=== PATIENT | male | born 1930 | race Caucasian/White ===

== ENCOUNTER 2019-12-16 09:59 | Emergency (ER) | payer MEDICARE ==
[~2019-12-16] VITALS: Ht 182.9 cm; Wt 100.0 kg
--- NOTE | 2019-12-16 10:18 | NUR ---
DR MANN BS FOR EXAM. PT REPORTS STATES "IT'S ALL SCROTAL AREA TO ME". NOTICES BLEEDING AFTER URINATING. PT PREVIOUSLY STATED HE DOESN'T URINATE DAILY. PT NOW STATES "I PEE EVERY DAY, BUT NOT LIKE WHEN I WAS YOUNGER". PT DENIES RENAL FAILURE.
--- NOTE | 2019-12-16 10:23 | NUR ---
PT WOULD LIKE HIS SON TO BE NOTIFIED OF PT BEING IN ED TODAY. SON: ONEYDA LAWTON. CELL [phone]. ( JANUARY 04)
--- NOTE | 2019-12-16 10:33 | NUR ---
ISIS BLOOD NOTED ON PT'S DEPENDS.
--- NOTE | 2019-12-16 11:13 | NUR ---
CALLED PT'S SON - ID VERIFIED. GENERAL PT STATUS PROVIDED. ONEYDA WILL COME TO ED SOON. PT WILL BE NOTIFIED.
[2019-12-16 11:15] LABS: ALANINE AMINOTRANSFERASE 15 U/L (12-78); ALBUMIN 2.8 g/dL (3.4-5.0); ANION GAP 6 mmol/L (5-15); CALCIUM 8.6 mg/dL (8.5-10.1); CHLORIDE 107 mmol/L (98-107); INTERNATIONAL NORMALIZED RATIO 1.47 (0.93-1.1)
[2019-12-16 11:19] LABS: ALKALINE PHOSPHATASE 85 U/L (45-117); CREATININE 1.52 mg/dL (0.7-1.3); TOTAL PROTEIN 5.9 g/dL (6.4-8.2)
[2019-12-16 11:25] LABS: PROTHROMBIN TIME 15.6 Seconds (9.6-11.5)
--- NOTE | 2019-12-16 11:26 | NUR ---
PT REPORT TO [facility]. PT CARE TRANSFERRED. NYSTATIN RECEIVED FROM PHARMACY; RX GIVEN TO ETELVINA.
[2019-12-16] MEDS ORDERED: NYSTATIN TOPICAL POWDER 15GM TP ONE (11:30)
--- NOTE | 2019-12-16 11:52 | NUR ---
PT UNABLE TO PROVIDE URINE SAMPLE. UA COLLECTED VIA STRAIGHT CATH AND TAKEN TO LAB.
[2019-12-16 11:58] LABS: MEAN CORPUSCULAR HEMOGLOBIN 33.9 pg (27.5-34.5); MEAN CORPUSCULAR HGB CONC 32.4 g/dL (33.2-36.2); MEAN CORPUSCULAR VOLUME 104.8 fL (81-97); PLATELET COUNT 90 x10^3/uL (130-400); RED BLOOD COUNT 3.37 x10^6/uL (4.38-5.82); RED CELL DISTRIBUTION WIDTH 17.2 % (9.4-14.8)
[2019-12-16 12:08] LABS: MD SCAN
[2019-12-16 12:09] LABS: BASOPHILS # (AUTO) 0.01 x10^3/uL (0-0.1); BASOPHILS % (AUTO) 0 % (0-1); EOSINOPHILS # (AUTO) 0.01 x10^3/uL (0-0.4); EOSINOPHILS % (AUTO) 0 % (1-7); LYMPHOCYTES # (AUTO) 1.52 x10^3/uL (1-3.4); LYMPHOCYTES % (AUTO) 47 % (22-44); MONOCYTES # (AUTO) 0.05 x10^3/uL (0.2-0.8); MONOCYTES % (AUTO) 2 % (2-9); NEUTROPHILS # (AUTO) 1.68 x10^3/uL (1.8-6.8); NEUTROPHILS % (AUTO) 51 % (42-75)
[2019-12-16 12:25] VITALS: BP 103/61
[2019-12-16 12:27] LABS: MICROSCOPIC AUTO
--- NOTE | 2019-12-16 12:43 | NUR ---
ALL RESULTS ARE BACK AT THIS TIME. CHART UP FOR RECHECK. SON AT BEDSIDE. SON WILL DRIVE PT HOME IF/WHEN DC.
--- NOTE | 2019-12-16 13:26 | NUR ---
MD AT BEDSIDE TO UPDATE PT ON POC.
== END 2019-12-16 13:57 | disposition home or self-care (01) ==
LOC: ED 10:48
DX: R31.0 Gross hematuria (principal); B37.42 Candidal balanitis
CPT/HCPCS: 36415; 80053; 81001; 85025; 85610; 85730; 99283

== ENCOUNTER 2019-12-19 22:07 | Inpatient (IN) | payer MEDICARE, OTHER ==
[~2019-12-19] VITALS: Ht 188 cm; Wt 93.5 kg
--- NOTE | 2019-12-19 22:45 | NUR ---
PT TO ED WITH C/O OF LEFT SIDED SCROTAL BLEEDING. NO BLEEDING NOTED, SCAB SITES NOTED. ERP IN ROOM TO EVAL PT. MONITORING IN PLACE, CALL LIGHT WITHINREACH, FAMILY AT BS FOR SUPPORT.
[2019-12-19 23:23] LABS: MEAN CORPUSCULAR HEMOGLOBIN 33.7 pg (27.5-34.5); MEAN CORPUSCULAR HGB CONC 32.2 g/dL (33.2-36.2); MEAN PLATELET VOLUME 9.5 fL (7.4-10.4); PLATELET COUNT 96 x10^3/uL (130-400); RED BLOOD COUNT 3.23 x10^6/uL (4.38-5.82); RED CELL DISTRIBUTION WIDTH 17.1 % (9.4-14.8)
[2019-12-19 23:25] LABS: ALANINE AMINOTRANSFERASE 13 U/L (12-78); ALBUMIN 2.5 g/dL (3.4-5.0); ANION GAP 4 mmol/L (5-15); CHLORIDE 107 mmol/L (98-107); CREATININE 1.55 mg/dL (0.7-1.3)
[2019-12-19 23:29] LABS: ALKALINE PHOSPHATASE 79 U/L (45-117); BILIRUBIN,TOTAL 0.7 mg/dL (0.2-1.0); TOTAL PROTEIN 5.5 g/dL (6.4-8.2)
--- NOTE | 2019-12-19 23:33 | NUR ---
THIS TECH DID EKG
[2019-12-19 23:46] LABS: BASOPHILS # (AUTO) 0.01 x10^3/uL (0-0.1); BASOPHILS % (AUTO) 0 % (0-1); EOSINOPHILS % (AUTO) 0 % (1-7); LYMPHOCYTES # (AUTO) 1.34 x10^3/uL (1-3.4); LYMPHOCYTES % (AUTO) 33 % (22-44); MD MORPH REVIEW ONLY; MONOCYTES # (AUTO) 0.02 x10^3/uL (0.2-0.8); MONOCYTES % (AUTO) 1 % (2-9); NEUTROPHILS # (AUTO) 2.68 x10^3/uL (1.8-6.8); NEUTROPHILS % (AUTO) 66 % (42-75)
[2019-12-19 23:48] LABS: ANISOCYTOSIS 1+; ECHINOCYTES 1+; OVALOCYTES 1+
[2019-12-19 23:49] LABS: <PLATELET ESTIMATE> DECREASED; <PLT MORPHOLOGY> NORMAL PLT MORPH
[2019-12-20] MEDS ORDERED: FUROSEMIDE 20 MG/2 ML ONE (00:17)
[2019-12-20] MEDS ORDERED: POTASSIUM CHLORIDE 20 MEQ TAB.ER.PRT ONE (00:17)
[2019-12-20] MEDS ORDERED: FUROSEMIDE 40 MG/4 ML IV ONE ×2 (00:30→11:00)
[2019-12-20] MEDS ORDERED: BISACODYL 10 MG SUPP PR PRN (00:30)
[2019-12-20] MEDS ORDERED: ACETAMINOPHEN 325 MG TABLET PO PRN (00:30)
[2019-12-20] MEDS ORDERED: POLYETHYLENE GLYCOL 17 GM PACKET PO PRN (00:30)
[2019-12-20] MEDS ORDERED: POTASSIUM CHLORIDE 20 MEQ TAB.ER.PRT PO ONE (00:30)
[2019-12-20] MEDS ORDERED: ONDANSETRON ODT 4 MG PO PRN (00:30)
[2019-12-20 02:32] VITALS: BP 118/78
[2019-12-20 06:14] LABS: CHLORIDE 107 mmol/L (98-107)
[2019-12-20 06:17] LABS: MEAN CORPUSCULAR HEMOGLOBIN 34.2 pg (27.5-34.5); MEAN CORPUSCULAR HGB CONC 33.2 g/dL (33.2-36.2); MEAN PLATELET VOLUME 9.6 fL (7.4-10.4); PLATELET COUNT 88 x10^3/uL (130-400); RED CELL DISTRIBUTION WIDTH 17.3 % (9.4-14.8)
[2019-12-20 06:27] LABS: ANION GAP 6 mmol/L (5-15); CALCIUM 8.4 mg/dL (8.5-10.1); CREATININE 1.33 mg/dL (0.7-1.3)
[2019-12-20 06:54] LABS: BASOPHILS % (AUTO) 0 % (0-1); EOSINOPHILS % (AUTO) 0 % (1-7); LYMPHOCYTES # (AUTO) 1.32 x10^3/uL (1-3.4); LYMPHOCYTES % (AUTO) 40 % (22-44); MD SCAN; MONOCYTES # (AUTO) 0.01 x10^3/uL (0.2-0.8); MONOCYTES % (AUTO) 0 % (2-9); NEUTROPHILS # (AUTO) 1.99 x10^3/uL (1.8-6.8); NEUTROPHILS % (AUTO) 60 % (42-75)
[2019-12-20 07:18] VITALS: BP 100/86
[2019-12-20] MEDS: POTASSIUM CHLORIDE 20 MEQ TAB.ER.PRT PO SCH ×3 (08:00→17:16)
[2019-12-20] MEDS: FUROSEMIDE 40 MG/4 ML IV SCH ×2 (08:21→17:16)
[2019-12-20] MEDS: SENNA/DOCUSATE TABLET PO SCH (08:22)
[2019-12-20] MEDS: SODIUM CHLORIDE FLUSH 10ML SYR IVF SCH ×2 (08:22→21:44)
[2019-12-20] MEDS ORDERED: POTASSIUM CHLORIDE 40 MEQ in SODIUM CHLORIDE 0.9% 500 ML IV ONE (11:00)
[2019-12-20 13:29] VITALS: BP 102/58
[2019-12-20 22:01] VITALS: BP 93/59
[2019-12-20 22:03] VITALS: BP 94/55
[2019-12-21 01:34] VITALS: BP 90/56
[2019-12-21 01:58] LABS: MICROSCOPIC INDICATED
[2019-12-21] MEDS: CEFTRIAXONE PMX 1GM/50ML 50 ML IV SCH (04:33)
[2019-12-21 06:58] VITALS: BP 90/61
[2019-12-21 07:18] LABS: ALANINE AMINOTRANSFERASE 16 U/L (12-78); ALBUMIN 2.2 g/dL (3.4-5.0); ANION GAP 7 mmol/L (5-15); CALCIUM 8.2 mg/dL (8.5-10.1); CHLORIDE 107 mmol/L (98-107); MEAN CORPUSCULAR HGB CONC 32.5 g/dL (33.2-36.2); RED BLOOD COUNT 3.32 x10^6/uL (4.38-5.82); RED CELL DISTRIBUTION WIDTH 17.6 % (9.4-14.8)
[2019-12-21 07:20] LABS: ALKALINE PHOSPHATASE 96 U/L (45-117); BILIRUBIN,TOTAL 1.3 mg/dL (0.2-1.0); CREATININE 2.19 mg/dL (0.7-1.3); TOTAL PROTEIN 5.6 g/dL (6.4-8.2)
[2019-12-21 07:34] LABS: MEAN PLATELET VOLUME 9.8 fL (7.4-10.4); PLATELET COUNT 75 x10^3/uL (130-400)
[2019-12-21 07:35] LABS: BASOPHILS % (AUTO) 0 % (0-1); EOSINOPHILS % (AUTO) 0 % (1-7); LYMPHOCYTES # (AUTO) 1.11 x10^3/uL (1-3.4); LYMPHOCYTES % (AUTO) 14 % (22-44); MD SCAN; MONOCYTES # (AUTO) 0.01 x10^3/uL (0.2-0.8); MONOCYTES % (AUTO) 0 % (2-9); NEUTROPHILS # (AUTO) 6.62 x10^3/uL (1.8-6.8); NEUTROPHILS % (AUTO) 86 % (42-75)
[2019-12-21 08:37] VITALS: BP 103/62
[2019-12-21] MEDS: POTASSIUM CHLORIDE 20 MEQ TAB.ER.PRT PO SCH ×2 (08:43→18:43)
[2019-12-21] MEDS: SENNA/DOCUSATE TABLET PO SCH (08:43)
[2019-12-21] MEDS: FUROSEMIDE 40 MG/4 ML IV SCH ×2 (08:43→18:43)
[2019-12-21] MEDS: SODIUM CHLORIDE FLUSH 10ML SYR IVF SCH ×2 (08:43→21:00)
[2019-12-21 12:24] VITALS: BP 94/68
[2019-12-21] MEDS: HEPARIN 5,000 UNITS/ML, 1ML SQ SCH (18:43)
[2019-12-21 19:02] VITALS: BP 100/66
[2019-12-22 01:19] VITALS: BP 98/63
[2019-12-22] MEDS: HEPARIN 5,000 UNITS/ML, 1ML SQ SCH ×3 (04:29→20:36)
[2019-12-22] MEDS: CEFTRIAXONE PMX 1GM/50ML 50 ML IV SCH (04:29)
[2019-12-22] MEDS: SENNA/DOCUSATE TABLET PO SCH (08:13)
[2019-12-22] MEDS: POTASSIUM CHLORIDE 20 MEQ TAB.ER.PRT PO SCH ×2 (08:13→17:11)
[2019-12-22] MEDS: FUROSEMIDE 40 MG/4 ML IV SCH ×2 (08:13→17:11)
[2019-12-22] MEDS: SODIUM CHLORIDE FLUSH 10ML SYR IVF SCH ×2 (08:13→20:36)
[2019-12-22 08:34] VITALS: BP 106/72
[2019-12-22 13:19] VITALS: BP 99/61
[2019-12-22 19:29] VITALS: BP 98/68
[2019-12-23 01:35] VITALS: BP 102/70
[2019-12-23] MEDS: HEPARIN 5,000 UNITS/ML, 1ML SQ SCH ×3 (04:33→20:06)
[2019-12-23] MEDS: CEFTRIAXONE PMX 1GM/50ML 50 ML IV SCH (04:33)
[2019-12-23 06:34] VITALS: BP 118/75
[2019-12-23] MEDS: FUROSEMIDE 40 MG/4 ML IV SCH (07:42)
[2019-12-23] MEDS: POTASSIUM CHLORIDE 20 MEQ TAB.ER.PRT PO SCH ×2 (07:42→17:00)
[2019-12-23] MEDS: SENNA/DOCUSATE TABLET PO SCH (07:42)
[2019-12-23] MEDS: SODIUM CHLORIDE FLUSH 10ML SYR IVF SCH ×2 (07:42→20:06)
[2019-12-23 13:40] VITALS: BP 105/74
[2019-12-23] MEDS ORDERED: AMIODARONE 150 MG in DEXTROSE 5% 100 ML IV ONE ×2 (17:00→18:30)
[2019-12-23] MEDS ORDERED: FILTER 0.22 MICRON IV PRN (17:00)
[2019-12-23] MEDS: AMIODARONE 450 MG in DEXTROSE 5% 241 ML IV PRN (17:57)
[2019-12-23 17:59] LABS: ALANINE AMINOTRANSFERASE 17 U/L (12-78); ALBUMIN 1.9 g/dL (3.4-5.0); ANION GAP 8 mmol/L (5-15); CALCIUM 8.5 mg/dL (8.5-10.1); CHLORIDE 108 mmol/L (98-107); CREATININE 3.24 mg/dL (0.7-1.3)
[2019-12-23 18:03] LABS: MEAN CORPUSCULAR HEMOGLOBIN 33.7 pg (27.5-34.5); MEAN CORPUSCULAR HGB CONC 32.7 g/dL (33.2-36.2); RED BLOOD COUNT 4.32 x10^6/uL (4.38-5.82); RED CELL DISTRIBUTION WIDTH 18.3 % (9.4-14.8)
[2019-12-23 18:04] LABS: ALKALINE PHOSPHATASE 117 U/L (45-117); BILIRUBIN,TOTAL 0.8 mg/dL (0.2-1.0); TOTAL PROTEIN 5.8 g/dL (6.4-8.2); TROPONIN I < 0.015 ng/mL (0.000-0.045)
[2019-12-23] MEDS: NOREPINEPHRINE 8 MG in SODIUM CHLORIDE 0.9% 242 ML IV PRN (18:04)
[2019-12-23] MEDS ORDERED: ACETAMINOPHEN 650 MG SUPP ONE (18:13)
[2019-12-23 18:16] LABS: BASOPHILS # (AUTO) 0.02 x10^3/uL (0-0.1); BASOPHILS % (AUTO) 0 % (0-1); EOSINOPHILS % (AUTO) 0 % (1-7); LYMPHOCYTES # (AUTO) 2.78 x10^3/uL (1-3.4); LYMPHOCYTES % (AUTO) 38 % (22-44); MD SCAN; MEAN PLATELET VOLUME 10.7 fL (7.4-10.4); MONOCYTES % (AUTO) 0 % (2-9); NEUTROPHILS # (AUTO) 4.45 x10^3/uL (1.8-6.8); NEUTROPHILS % (AUTO) 61 % (42-75)
[2019-12-23 18:18] LABS: PLATELET COUNT 43 x10^3/uL (130-400)
[2019-12-23] MEDS ORDERED: ACETAMINOPHEN 650 MG SUPP PR PRN (18:30)
[2019-12-23 18:49] LABS: MICROSCOPIC AUTO
[2019-12-23] MEDS ORDERED: METOPROLOL 1 MG/ML, 5ML IVPush ONE (20:00)
[2019-12-24] MEDS: HEPARIN 5,000 UNITS/ML, 1ML SQ SCH (04:30)
[2019-12-24] MEDS: CEFTRIAXONE PMX 1GM/50ML 50 ML IV SCH (05:11)
[2019-12-24 08:19] LABS: ANION GAP 7 mmol/L (5-15); CHLORIDE 106 mmol/L (98-107); CREATININE 3.23 mg/dL (0.7-1.3)
[2019-12-24] MEDS ORDERED: AMIODARONE 150 MG in DEXTROSE 5% 100 ML IV ONE (09:30)
[2019-12-24] MEDS: AMIODARONE 450 MG in DEXTROSE 5% 241 ML IV PRN ×3 (09:42→23:05)
[2019-12-24] MEDS: NOREPINEPHRINE 8 MG in SODIUM CHLORIDE 0.9% 242 ML IV PRN ×2 (09:42→12:47)
[2019-12-24] MEDS: SODIUM CHLORIDE FLUSH 10ML SYR IVF SCH ×2 (09:43→21:00)
[2019-12-24] MEDS: TAMSULOSIN 0.4 MG CAP.ER.24H PO SCH (09:46)
[2019-12-24] MEDS: CYANOCOBALAMIN 1,000 MCG TABLET PO SCH (09:46)
[2019-12-24] MEDS: SENNA/DOCUSATE TABLET PO SCH (09:46)
[2019-12-24 13:49] LABS: CHLORIDE,URINE RANDOM 62 mmol/L; POTASSIUM,URINE RANDOM 19 mmol/L; SODIUM,URINE RANDOM 54 mmol/L
[2019-12-25] MEDS: CEFTRIAXONE PMX 1GM/50ML 50 ML IV SCH (04:12)
[2019-12-25 04:31] LABS: MEAN CORPUSCULAR HEMOGLOBIN 33.1 pg (27.5-34.5); MEAN PLATELET VOLUME 12.6 fL (7.4-10.4); RED BLOOD COUNT 4.27 x10^6/uL (4.38-5.82); RED CELL DISTRIBUTION WIDTH 18.1 % (9.4-14.8)
[2019-12-25 04:32] LABS: PLATELET COUNT 38 x10^3/uL (130-400)
[2019-12-25 04:38] LABS: ANION GAP 4 mmol/L (5-15); CALCIUM 8.2 mg/dL (8.5-10.1); CHLORIDE 108 mmol/L (98-107); CREATININE 2.62 mg/dL (0.7-1.3)
[2019-12-25 05:42] LABS: MD YES
[2019-12-25 05:45] LABS: EOS#(MANUAL) 0.07 x10^3/uL (0.0-0.4); EOS% (MANUAL) 1 % (1-7); LYMPH#(MANUAL) 2.47 x10^3/uL (1-3.4); LYMPHS% (MANUAL) 38 % (22-44); MONOS#(MANUAL) 0.07 x10^3/uL (0.3-2.7); MONOS% (MANUAL) 1 % (2-9); SEGS% (MANUAL) 60 % (42-75)
[2019-12-25 05:46] LABS: ECHINOCYTES 1+
[2019-12-25 05:47] LABS: <PLATELET ESTIMATE> DECREASED; ACANTHOCYTES 1+; ANISOCYTOSIS 1+
[2019-12-25 05:48] LABS: TOXIC GRAN 1+
[2019-12-25 05:49] LABS: LARGE PLATELETS 1+
[2019-12-25] MEDS: CYANOCOBALAMIN 1,000 MCG TABLET PO SCH (09:11)
[2019-12-25] MEDS: SENNA/DOCUSATE TABLET PO SCH (09:11)
[2019-12-25] MEDS: TAMSULOSIN 0.4 MG CAP.ER.24H PO SCH (09:11)
[2019-12-25] MEDS: SODIUM CHLORIDE FLUSH 10ML SYR IVF SCH ×2 (09:12→20:53)
[2019-12-25] MEDS: AMIODARONE 450 MG in DEXTROSE 5% 241 ML IV PRN (09:25)
[2019-12-25] MEDS: ALBUMIN HUMAN 25% 100 ML IV SCH ×2 (10:10→20:53)
[2019-12-25] MEDS: FUROSEMIDE 20 MG/2 ML IV SCH ×2 (10:57→16:46)
[2019-12-26] MEDS: AMIODARONE 450 MG in DEXTROSE 5% 241 ML IV PRN ×3 (01:40→19:57)
[2019-12-26] MEDS: CEFTRIAXONE PMX 1GM/50ML 50 ML IV SCH (04:44)
[2019-12-26 05:07] LABS: ANION GAP 3 mmol/L (5-15); CALCIUM 7.8 mg/dL (8.5-10.1); CHLORIDE 108 mmol/L (98-107)
[2019-12-26 05:08] LABS: CREATININE 2.06 mg/dL (0.7-1.3)
[2019-12-26 06:01] LABS: MEAN CORPUSCULAR HEMOGLOBIN 33.1 pg (27.5-34.5); MEAN CORPUSCULAR HGB CONC 32.6 g/dL (33.2-36.2); MEAN PLATELET VOLUME 11.3 fL (7.4-10.4); RED BLOOD COUNT 3.55 x10^6/uL (4.38-5.82); RED CELL DISTRIBUTION WIDTH 17.3 % (9.4-14.8)
[2019-12-26 06:02] LABS: MD YES
[2019-12-26 06:03] LABS: PLATELET COUNT 48 x10^3/uL (130-400)
[2019-12-26 06:04] LABS: BAND#(MANUAL) 0.18 x10^3/uL; BANDS%(MANUAL) 3 % (0-7); MONOS#(MANUAL) 0.06 x10^3/uL (0.3-2.7); MONOS% (MANUAL) 1 % (2-9)
[2019-12-26 06:05] LABS: ACANTHOCYTES 1+; ANISOCYTOSIS 1+; ECHINOCYTES 1+; LYMPH#(MANUAL) 2.95 x10^3/uL (1-3.4); LYMPHS% (MANUAL) 50 % (22-44); SEG#(MANUAL) 2.71 x10^3/uL (1.8-6.8); SEGS% (MANUAL) 46 % (42-75)
[2019-12-26 06:06] LABS: <PLATELET ESTIMATE> DECREASED; LARGE PLATELETS 1+; SMUDGE CELLS 1+
[2019-12-26 06:07] LABS: OVALOCYTES 1+
[2019-12-26] MEDS ORDERED: POTASSIUM CHLORIDE 20 MEQ TAB.ER.PRT PO ONE (07:30)
[2019-12-26] MEDS ORDERED: FUROSEMIDE 40 MG/4 ML IV ONE (08:30)
[2019-12-26] MEDS: SENNA/DOCUSATE TABLET PO SCH (08:45)
[2019-12-26] MEDS: CYANOCOBALAMIN 1,000 MCG TABLET PO SCH (08:45)
[2019-12-26] MEDS: SODIUM CHLORIDE FLUSH 10ML SYR IVF SCH ×2 (08:46→19:59)
[2019-12-26] MEDS: TAMSULOSIN 0.4 MG CAP.ER.24H PO SCH (08:46)
[2019-12-26] MEDS: ALBUMIN HUMAN 25% 100 ML IV SCH ×2 (08:49→22:18)
[2019-12-26] MEDS ORDERED: FUROSEMIDE 40 MG/4 ML IV SCH (17:00)
[2019-12-26] MEDS: NOREPINEPHRINE 8 MG in SODIUM CHLORIDE 0.9% 242 ML IV PRN (19:57)
[2019-12-27] MEDS: AMIODARONE 450 MG in DEXTROSE 5% 241 ML IV PRN ×2 (03:35→15:30)
[2019-12-27] MEDS: CEFTRIAXONE PMX 1GM/50ML 50 ML IV SCH (04:33)
[2019-12-27 05:26] LABS: MEAN CORPUSCULAR HEMOGLOBIN 33.5 pg (27.5-34.5); MEAN CORPUSCULAR HGB CONC 32.7 g/dL (33.2-36.2); MEAN PLATELET VOLUME 10.9 fL (7.4-10.4); PLATELET COUNT 67 x10^3/uL (130-400); RED CELL DISTRIBUTION WIDTH 16.9 % (9.4-14.8)
[2019-12-27 05:27] LABS: ANION GAP 3 mmol/L (5-15); CALCIUM 7.8 mg/dL (8.5-10.1); CHLORIDE 107 mmol/L (98-107); CREATININE 1.68 mg/dL (0.7-1.3)
[2019-12-27 05:54] LABS: MD YES
[2019-12-27 05:56] LABS: ANISOCYTOSIS 1+; EOS#(MANUAL) 0.12 x10^3/uL (0.0-0.4); EOS% (MANUAL) 2 % (1-7); LYMPH#(MANUAL) 2.88 x10^3/uL (1-3.4); LYMPHS% (MANUAL) 48 % (22-44); MONOS#(MANUAL) 0.06 x10^3/uL (0.3-2.7); MONOS% (MANUAL) 1 % (2-9); SEG#(MANUAL) 2.94 x10^3/uL (1.8-6.8); SEGS% (MANUAL) 49 % (42-75)
[2019-12-27 05:57] LABS: <PLATELET ESTIMATE> DECREASED; ACANTHOCYTES 1+; ECHINOCYTES 1+; LARGE PLATELETS 1+; SMUDGE CELLS 1+
[2019-12-27] MEDS ORDERED: FUROSEMIDE 20 MG/2 ML ONE (09:24)
[2019-12-27] MEDS ORDERED: FUROSEMIDE 20 MG/2 ML IV ONE (09:30)
[2019-12-27] MEDS: SODIUM CHLORIDE FLUSH 10ML SYR IVF SCH ×2 (09:46→20:18)
[2019-12-27] MEDS: SENNA/DOCUSATE TABLET PO SCH (09:47)
[2019-12-27] MEDS: ALBUMIN HUMAN 25% 100 ML IV SCH ×2 (09:47→20:15)
[2019-12-27] MEDS: CYANOCOBALAMIN 1,000 MCG TABLET PO SCH (09:47)
[2019-12-27] MEDS: TAMSULOSIN 0.4 MG CAP.ER.24H PO SCH (09:47)
[2019-12-27] MEDS: METOPROLOL TARTRATE 25 MG TAB PO SCH ×2 (12:08→19:30)
[2019-12-27 14:24] LABS: INTERNATIONAL NORMALIZED RATIO 1.1 (0.93-1.1); PROTHROMBIN TIME 11.7 Seconds (9.6-11.5)
[2019-12-27 14:33] LABS: D-DIMER (DIC) 4.97 ug/mlFEU (0.00-0.52); PROTIME 11.6 Seconds (9.6-11.5)
[2019-12-27] MEDS ORDERED: DIGOXIN 0.25 MG/ML, 2ML IVPush ONE (15:00)
[2019-12-27] MEDS ORDERED: FUROSEMIDE 40 MG/4 ML IV SCH (17:00)
[2019-12-27] MEDS: DIGOXIN 0.25 MG/ML, 2ML IVPush SCH (20:16)
[2019-12-28] MEDS: METOPROLOL TARTRATE 25 MG TAB PO SCH ×3 (03:30→22:29)
[2019-12-28] MEDS: DIGOXIN 0.25 MG/ML, 2ML IVPush SCH (03:51)
[2019-12-28] MEDS: CEFTRIAXONE PMX 1GM/50ML 50 ML IV SCH (03:51)
[2019-12-28 04:30] LABS: ALANINE AMINOTRANSFERASE 10 U/L (12-78); ALBUMIN 2.5 g/dL (3.4-5.0); ANION GAP 4 mmol/L (5-15); CHLORIDE 104 mmol/L (98-107); CREATININE 1.43 mg/dL (0.7-1.3)
[2019-12-28 04:31] LABS: ALKALINE PHOSPHATASE 57 U/L (45-117); BILIRUBIN,TOTAL 0.8 mg/dL (0.2-1.0); TOTAL PROTEIN 4.7 g/dL (6.4-8.2)
[2019-12-28 04:55] LABS: MD YES; MEAN CORPUSCULAR HEMOGLOBIN 33.1 pg (27.5-34.5); MEAN CORPUSCULAR HGB CONC 32.6 g/dL (33.2-36.2); MEAN PLATELET VOLUME 10.4 fL (7.4-10.4); PLATELET COUNT 80 x10^3/uL (130-400); RED BLOOD COUNT 3.15 x10^6/uL (4.38-5.82); RED CELL DISTRIBUTION WIDTH 17.1 % (9.4-14.8)
[2019-12-28 05:00] LABS: ACANTHOCYTES 1+; ANISOCYTOSIS 1+; ECHINOCYTES 1+; EOS#(MANUAL) 0.24 x10^3/uL (0.0-0.4); EOS% (MANUAL) 5 % (1-7); LYMPH#(MANUAL) 1.73 x10^3/uL (1-3.4); LYMPHS% (MANUAL) 36 % (22-44); MONOS#(MANUAL) 0.05 x10^3/uL (0.3-2.7); MONOS% (MANUAL) 1 % (2-9); OVALOCYTES 1+; REACTIVE LYMPHS # (MANUAL) 0.05 x10^3/uL (0-0); REACTIVE LYMPHS % (MANUAL) 1 % (0-0); SEG#(MANUAL) 2.74 x10^3/uL (1.8-6.8); SEGS% (MANUAL) 57 % (42-75)
[2019-12-28 05:01] LABS: <PLATELET ESTIMATE> DECREASED; SCHISTOCYTES 1+; SMUDGE CELLS 1+; TOXIC GRAN 1+
[2019-12-28 05:02] LABS: LARGE PLATELETS 1+
[2019-12-28] MEDS: AMIODARONE 450 MG in DEXTROSE 5% 241 ML IV PRN (06:35)
[2019-12-28] MEDS ORDERED: POTASSIUM CHLORIDE 20 MEQ TAB.ER.PRT PO ONE (08:00)
[2019-12-28] MEDS: SODIUM CHLORIDE FLUSH 10ML SYR IVF SCH ×2 (09:00→22:29)
[2019-12-28] MEDS: CYANOCOBALAMIN 1,000 MCG TABLET PO SCH (09:05)
[2019-12-28] MEDS: ALBUMIN HUMAN 25% 100 ML IV SCH ×2 (09:06→22:29)
[2019-12-28] MEDS: SENNA/DOCUSATE TABLET PO SCH (09:09)
[2019-12-28] MEDS: FUROSEMIDE 20 MG TABLET PO SCH (09:17)
[2019-12-28 20:22] VITALS: BP 116/53
[2019-12-28 22:00] VITALS: BP 136/68
[2019-12-28 22:25] VITALS: BP 132/78
[2019-12-29 01:14] VITALS: BP 137/73
[2019-12-29 05:41] VITALS: BP 144/85
[2019-12-29] MEDS: CEFTRIAXONE PMX 1GM/50ML 50 ML IV SCH (05:48)
[2019-12-29] MEDS: METOPROLOL TARTRATE 25 MG TAB PO SCH ×3 (05:50→19:43)
[2019-12-29 06:25] LABS: MEAN CORPUSCULAR HEMOGLOBIN 33.1 pg (27.5-34.5); MEAN CORPUSCULAR HGB CONC 32.4 g/dL (33.2-36.2); MEAN PLATELET VOLUME 10.1 fL (7.4-10.4); PLATELET COUNT 85 x10^3/uL (130-400); RED BLOOD COUNT 3.23 x10^6/uL (4.38-5.82); RED CELL DISTRIBUTION WIDTH 17.1 % (9.4-14.8)
[2019-12-29 06:33] LABS: ALANINE AMINOTRANSFERASE 11 U/L (12-78); ALBUMIN 2.7 g/dL (3.4-5.0); ANION GAP 3 mmol/L (5-15); CALCIUM 8.5 mg/dL (8.5-10.1); CHLORIDE 108 mmol/L (98-107)
[2019-12-29 06:36] LABS: ALKALINE PHOSPHATASE 62 U/L (45-117); BILIRUBIN,TOTAL 0.7 mg/dL (0.2-1.0); TOTAL PROTEIN 5.1 g/dL (6.4-8.2)
[2019-12-29 06:46] LABS: MD YES
[2019-12-29 06:57] VITALS: BP 139/71
[2019-12-29 07:16] LABS: BASOS#(MANUAL) 0.05 x10^3/uL (0-0.1); BASOS% (MANUAL) 1 % (0-1); LYMPH#(MANUAL) 2.16 x10^3/uL (1-3.4); LYMPHS% (MANUAL) 45 % (22-44); MONOS#(MANUAL) 0.05 x10^3/uL (0.3-2.7); MONOS% (MANUAL) 1 % (2-9); SEG#(MANUAL) 2.54 x10^3/uL (1.8-6.8); SEGS% (MANUAL) 53 % (42-75)
[2019-12-29 07:20] LABS: <PLATELET ESTIMATE> DECREASED; ACANTHOCYTES 1+; ANISOCYTOSIS 1+; ECHINOCYTES 1+; OVALOCYTES 1+; SCHISTOCYTES 1+
[2019-12-29 07:21] LABS: LARGE PLATELETS 1+
[2019-12-29 07:22] LABS: SMUDGE CELLS 1+
[2019-12-29] MEDS: ALBUMIN HUMAN 25% 100 ML IV SCH ×2 (09:42→21:44)
[2019-12-29] MEDS: SENNA/DOCUSATE TABLET PO SCH (09:42)
[2019-12-29] MEDS: CYANOCOBALAMIN 1,000 MCG TABLET PO SCH (09:42)
[2019-12-29] MEDS: FUROSEMIDE 20 MG TABLET PO SCH (09:43)
[2019-12-29] MEDS: SODIUM CHLORIDE FLUSH 10ML SYR IVF SCH ×2 (09:47→21:44)
[2019-12-29] MEDS ORDERED: LIDOCAINE 1%, 10ML ONE (10:54)
[2019-12-29 14:40] VITALS: BP 133/65
[2019-12-30 02:17] VITALS: BP 142/77
[2019-12-30] MEDS: METOPROLOL TARTRATE 25 MG TAB PO SCH ×3 (05:16→21:45)
[2019-12-30] MEDS: CEFTRIAXONE PMX 1GM/50ML 50 ML IV SCH (05:41)
[2019-12-30 07:50] VITALS: BP 132/85
[2019-12-30] MEDS: FUROSEMIDE 20 MG TABLET PO SCH (09:32)
[2019-12-30] MEDS: SENNA/DOCUSATE TABLET PO SCH (09:32)
[2019-12-30] MEDS: POTASSIUM CHLORIDE 20 MEQ TAB.ER.PRT PO SCH (09:32)
[2019-12-30] MEDS: CYANOCOBALAMIN 1,000 MCG TABLET PO SCH (09:32)
[2019-12-30] MEDS: ALBUMIN HUMAN 25% 100 ML IV SCH ×2 (09:33→21:46)
[2019-12-30] MEDS: SODIUM CHLORIDE FLUSH 10ML SYR IVF SCH ×2 (09:34→21:45)
[2019-12-30 14:38] VITALS: BP 112/74
[2019-12-30 20:01] VITALS: BP 156/75
[2019-12-31 01:09] VITALS: BP 140/67
[2019-12-31 04:42] LABS: ALBUMIN 2.9 g/dL (3.4-5.0); ANION GAP 2 mmol/L (5-15); CHLORIDE 108 mmol/L (98-107); CREATININE 0.98 mg/dL (0.7-1.3)
[2019-12-31 04:50] LABS: MEAN CORPUSCULAR HEMOGLOBIN 33.1 pg (27.5-34.5); MEAN CORPUSCULAR HGB CONC 32.4 g/dL (33.2-36.2); MEAN PLATELET VOLUME 9.2 fL (7.4-10.4); PLATELET COUNT 145 x10^3/uL (130-400); RED BLOOD COUNT 3.11 x10^6/uL (4.38-5.82); RED CELL DISTRIBUTION WIDTH 17.1 % (9.4-14.8)
[2019-12-31 05:14] LABS: MD YES
[2019-12-31 05:18] LABS: <PLATELET ESTIMATE> ADEQUATE; ACANTHOCYTES 1+; ANISOCYTOSIS 1+; BAND#(MANUAL) 0.04 x10^3/uL; BANDS%(MANUAL) 1 % (0-7); ECHINOCYTES 1+; LARGE PLATELETS 1+; LYMPH#(MANUAL) 1.76 x10^3/uL (1-3.4); LYMPHS% (MANUAL) 40 % (22-44); MONOS#(MANUAL) 0.09 x10^3/uL (0.3-2.7); MONOS% (MANUAL) 2 % (2-9); OVALOCYTES 1+; REACTIVE LYMPHS # (MANUAL) 0.09 x10^3/uL (0-0); REACTIVE LYMPHS % (MANUAL) 2 % (0-0); SCHISTOCYTES 1+; SEG#(MANUAL) 2.42 x10^3/uL (1.8-6.8); SEGS% (MANUAL) 55 % (42-75); SMUDGE CELLS 1+
[2019-12-31] MEDS: METOPROLOL TARTRATE 25 MG TAB PO SCH ×3 (05:53→21:45)
[2019-12-31] MEDS: CEFTRIAXONE PMX 1GM/50ML 50 ML IV SCH (06:33)
[2019-12-31 06:52] VITALS: BP 129/79
[2019-12-31] MEDS ORDERED: POTASSIUM CHLORIDE 20 MEQ TAB.ER.PRT PO ONE (08:00)
[2019-12-31] MEDS ORDERED: REGADENOSON 0.4 MG/5 ML SYRINGE ONE (09:12)
[2019-12-31] MEDS: ALBUMIN HUMAN 25% 100 ML IV SCH ×2 (09:14→21:45)
[2019-12-31 09:17] LABS: TROPONIN I 0.041 ng/mL (0.000-0.045)
[2019-12-31] MEDS: SODIUM CHLORIDE FLUSH 10ML SYR IVF SCH ×2 (09:19→21:45)
[2019-12-31] MEDS: POTASSIUM CHLORIDE 20 MEQ TAB.ER.PRT PO SCH (12:00)
[2019-12-31] MEDS: CYANOCOBALAMIN 1,000 MCG TABLET PO SCH (12:00)
[2019-12-31] MEDS ORDERED: POTASSIUM PHOSPHATE 44 MEQ in SODIUM CHLORIDE 0.9% 500 ML IV ONE (12:30)
[2019-12-31] MEDS: ZINC SULFATE 220 MG CAPSULE PO SCH (12:30)
[2019-12-31] MEDS: CHOLECALCIFEROL 5,000u TAB PO SCH (12:30)
[2019-12-31] MEDS: MULTIVITS,STRESS FORMULA 1 TABLET PO SCH (12:30)
[2019-12-31] MEDS: SENNA/DOCUSATE TABLET PO SCH (13:35)
[2019-12-31] MEDS: FUROSEMIDE 20 MG TABLET PO SCH (13:35)
[2019-12-31 14:00] VITALS: BP 132/84
[2019-12-31 18:40] VITALS: BP 131/65
[2019-12-31] MEDS ORDERED: HEPARIN 25,000 UNITS/250ML PMX 250 ML IV PRN (20:00)
[2019-12-31] MEDS ORDERED: HEPARIN 5,000 UNITS/ML, 1ML IV PRN (20:00)
[2019-12-31] MEDS ORDERED: HEPARIN 5,000 UNITS/ML, 1ML IV ONE (20:00)
[2019-12-31] MEDS: ASCORBIC ACID 500 MG TABLET PO SCH (21:45)
[2019-12-31] MEDS ORDERED: OMNIPAQUE 350 MG/ML, 100ML BOTTLE ONE (22:35)
[2020-01-01 01:58] VITALS: BP 136/85
[2020-01-01 03:43] LABS: BASOPHILS # (AUTO) 0.01 x10^3/uL (0-0.1); BASOPHILS % (AUTO) 0 % (0-1); EOSINOPHILS # (AUTO) 0.06 x10^3/uL (0-0.4); EOSINOPHILS % (AUTO) 2 % (1-7); LYMPHOCYTES # (AUTO) 1.45 x10^3/uL (1-3.4); LYMPHOCYTES % (AUTO) 39 % (22-44); MD NO; MEAN CORPUSCULAR HEMOGLOBIN 33.4 pg (27.5-34.5); MEAN CORPUSCULAR HGB CONC 32.7 g/dL (33.2-36.2); MEAN PLATELET VOLUME 8.9 fL (7.4-10.4); MONOCYTES # (AUTO) 0.04 x10^3/uL (0.2-0.8); MONOCYTES % (AUTO) 1 % (2-9); NEUTROPHILS % (AUTO) 58 % (42-75); PLATELET COUNT 153 x10^3/uL (130-400)
[2020-01-01 03:52] LABS: ALBUMIN 3.2 g/dL (3.4-5.0); ANION GAP 4 mmol/L (5-15); CALCIUM 8.5 mg/dL (8.5-10.1); CHLORIDE 108 mmol/L (98-107); CREATININE 1.04 mg/dL (0.7-1.3)
[2020-01-01] MEDS: METOPROLOL TARTRATE 25 MG TAB PO SCH ×3 (06:32→22:00)
[2020-01-01] MEDS: CEFTRIAXONE PMX 1GM/50ML 50 ML IV SCH (06:32)
[2020-01-01 09:42] VITALS: BP 128/61
[2020-01-01] MEDS: SENNA/DOCUSATE TABLET PO SCH (09:47)
[2020-01-01] MEDS: FUROSEMIDE 20 MG TABLET PO SCH (09:50)
[2020-01-01] MEDS: APIXABAN 5 MG TABLET PO SCH ×2 (09:51→22:03)
[2020-01-01] MEDS: CYANOCOBALAMIN 1,000 MCG TABLET PO SCH (09:53)
[2020-01-01] MEDS: POTASSIUM CHLORIDE 20 MEQ TAB.ER.PRT PO SCH (09:53)
[2020-01-01] MEDS: CHOLECALCIFEROL 5,000u TAB PO SCH (09:54)
[2020-01-01] MEDS: MULTIVITS,STRESS FORMULA 1 TABLET PO SCH (09:54)
[2020-01-01] MEDS: ZINC SULFATE 220 MG CAPSULE PO SCH (09:55)
[2020-01-01] MEDS: ASCORBIC ACID 500 MG TABLET PO SCH ×2 (09:55→17:47)
[2020-01-01] MEDS: SODIUM CHLORIDE FLUSH 10ML SYR IVF SCH ×2 (09:59→22:10)
[2020-01-01] MEDS: ALBUMIN HUMAN 25% 100 ML IV SCH ×2 (09:59→21:59)
[2020-01-01 12:20] VITALS: BP 135/86
[2020-01-01 14:20] VITALS: BP 128/81
[2020-01-01 21:10] VITALS: BP 126/69
[2020-01-02 02:36] VITALS: BP 142/56
[2020-01-02 04:07] LABS: MEAN CORPUSCULAR HEMOGLOBIN 32.7 pg (27.5-34.5); MEAN CORPUSCULAR HGB CONC 31.6 g/dL (33.2-36.2); MEAN PLATELET VOLUME 8.7 fL (7.4-10.4); PLATELET COUNT 165 x10^3/uL (130-400); RED BLOOD COUNT 3.01 x10^6/uL (4.38-5.82); RED CELL DISTRIBUTION WIDTH 16.8 % (9.4-14.8)
[2020-01-02 04:17] LABS: ALBUMIN 3.3 g/dL (3.4-5.0); ANION GAP 2 mmol/L (5-15); CALCIUM 8.2 mg/dL (8.5-10.1); CHLORIDE 108 mmol/L (98-107); CREATININE 0.98 mg/dL (0.7-1.3)
[2020-01-02 05:50] LABS: MD YES
[2020-01-02 05:57] LABS: ANISOCYTOSIS 1+; ECHINOCYTES 1+; LYMPH#(MANUAL) 1.87 x10^3/uL (1-3.4); LYMPHS% (MANUAL) 52 % (22-44); MONOS#(MANUAL) 0.14 x10^3/uL (0.3-2.7); MONOS% (MANUAL) 4 % (2-9); OVALOCYTES 1+; SEG#(MANUAL) 1.58 x10^3/uL (1.8-6.8); SEGS% (MANUAL) 44 % (42-75)
[2020-01-02 05:58] LABS: <PLATELET ESTIMATE> ADEQUATE; ACANTHOCYTES 1+; LARGE PLATELETS 1+; SCHISTOCYTES 1+; SMUDGE CELLS 1+
[2020-01-02] MEDS: METOPROLOL TARTRATE 25 MG TAB PO SCH ×3 (06:08→22:02)
[2020-01-02] MEDS: CEFTRIAXONE PMX 1GM/50ML 50 ML IV SCH (06:14)
[2020-01-02 08:45] VITALS: BP 147/81
[2020-01-02] MEDS: FUROSEMIDE 20 MG TABLET PO SCH (09:32)
[2020-01-02] MEDS: APIXABAN 5 MG TABLET PO SCH ×2 (09:33→22:04)
[2020-01-02] MEDS: ASCORBIC ACID 500 MG TABLET PO SCH ×2 (09:34→17:27)
[2020-01-02] MEDS: LOSARTAN 25MG TABLET PO SCH (09:34)
[2020-01-02] MEDS: SENNA/DOCUSATE TABLET PO SCH (09:35)
[2020-01-02] MEDS: MULTIVITS,STRESS FORMULA 1 TABLET PO SCH (09:36)
[2020-01-02] MEDS: CYANOCOBALAMIN 1,000 MCG TABLET PO SCH (09:36)
[2020-01-02] MEDS: CHOLECALCIFEROL 5,000u TAB PO SCH (09:36)
[2020-01-02] MEDS: ZINC SULFATE 220 MG CAPSULE PO SCH (09:36)
[2020-01-02] MEDS: POTASSIUM CHLORIDE 20 MEQ TAB.ER.PRT PO SCH (09:36)
[2020-01-02] MEDS: SODIUM CHLORIDE FLUSH 10ML SYR IVF SCH ×2 (09:38→21:00)
[2020-01-02] MEDS: ALBUMIN HUMAN 25% 100 ML IV SCH ×2 (09:40→22:01)
[2020-01-02 13:21] VITALS: BP 134/76
[2020-01-02 22:06] VITALS: BP 132/79
[2020-01-03 02:20] VITALS: BP 135/80
[2020-01-03] MEDS: METOPROLOL TARTRATE 25 MG TAB PO SCH ×2 (06:04→14:39)
[2020-01-03 07:53] VITALS: BP 145/77
[2020-01-03] MEDS ORDERED: CEFTRIAXONE PMX 1GM/50ML 50 ML IV ONE (08:00)
[2020-01-03] MEDS: ASCORBIC ACID 500 MG TABLET PO SCH (08:00)
[2020-01-03 08:30] VITALS: BP 144/82
[2020-01-03] MEDS: LOSARTAN 25MG TABLET PO SCH (08:39)
[2020-01-03] MEDS: SENNA/DOCUSATE TABLET PO SCH (08:39)
[2020-01-03] MEDS: APIXABAN 5 MG TABLET PO SCH (08:39)
[2020-01-03] MEDS: FUROSEMIDE 20 MG TABLET PO SCH (08:39)
[2020-01-03] MEDS: POTASSIUM CHLORIDE 20 MEQ TAB.ER.PRT PO SCH (08:39)
[2020-01-03] MEDS: CHOLECALCIFEROL 5,000u TAB PO SCH (08:40)
[2020-01-03] MEDS: SODIUM CHLORIDE FLUSH 10ML SYR IVF SCH (08:40)
[2020-01-03] MEDS: ZINC SULFATE 220 MG CAPSULE PO SCH (08:58)
[2020-01-03] MEDS: MULTIVITS,STRESS FORMULA 1 TABLET PO SCH (08:58)
[2020-01-03] MEDS: CYANOCOBALAMIN 1,000 MCG TABLET PO SCH (08:59)
[2020-01-03] MEDS: ALBUMIN HUMAN 25% 100 ML IV SCH (09:28)
[2020-01-03 13:31] VITALS: BP_SYST 106; BP_SYST 119; BP_SYST 136; BP_DIAS 64; BP_DIAS 71
[2020-01-03] MEDS ORDERED: APIX5TAB PO (14:01)
[2020-01-03] MEDS ORDERED: ASCO500T9 PO (14:01)
[2020-01-03] MEDS ORDERED: CHOL500045 PO (14:01)
[2020-01-03] MEDS ORDERED: FURO20TA3 PO (14:01)
[2020-01-03] MEDS ORDERED: CYAN-27 PO (14:01)
[2020-01-03] MEDS ORDERED: ZINC220C7 PO (14:01)
[2020-01-03] MEDS ORDERED: MULT1TAB76 PO (14:01)
[2020-01-03] MEDS ORDERED: LOSA25TA25 PO (14:01)
[2020-01-03] MEDS ORDERED: METO25TA35 PO (14:01)
[2020-01-03] MEDS ORDERED: POTA20TA6 PO (14:01)
[2020-01-03] MEDS ORDERED: ACET325T26 PO (14:01)
[2020-01-03] MEDS ORDERED: POLY17PO5 PO (14:01)
[2020-01-03] MEDS ORDERED: TAMS-11 PO (14:19)
== END 2020-01-03 17:15 | DRG 871 ==
LOC: ED 12-20 00:22 → 5SO 12-20 01:27 → CCU 12-23 17:11 → 5SO 12-28 17:33
PROVIDERS: ADMIT Hospitalist; ATTEND Family Medicine
PROC: 0T9B30Z Drainage of Bladder with Drainage Device, Percutaneous Approach (ICD-10-PCS; 2019-12-23)
PROC: 02HV33Z Insertion of Infusion Device into Superior Vena Cava, Percutaneous Approach (ICD-10-PCS; principal; 2019-12-25)
PROC: B548ZZA Ultrasonography of Superior Vena Cava, Guidance (ICD-10-PCS; 2019-12-25)
PROC: 0W993ZZ Drainage of Right Pleural Cavity, Percutaneous Approach (ICD-10-PCS; 2019-12-29)
DX: A41.51 Sepsis due to Escherichia coli [E. coli] (principal); I50.23 Acute on chronic systolic (congestive) heart failure; E43 Unspecified severe protein-calorie malnutrition; N17.0 Acute kidney failure with tubular necrosis; R57.0 Cardiogenic shock; J18.9 Pneumonia, unspecified organism; R65.21 Severe sepsis with septic shock; I26.99 Other pulmonary embolism without acute cor pulmonale; I13.0 Hypertensive heart and chronic kidney disease with heart failure and stage 1 through stage 4 chronic kidney disease, or unspecified chronic kidney disease; N39.0 Urinary tract infection, site not specified; I42.9 Cardiomyopathy, unspecified; D68.69 Other thrombophilia; J91.8 Pleural effusion in other conditions classified elsewhere; N50.89 Other specified disorders of the male genital organs; D69.6 Thrombocytopenia, unspecified; D75.89 Other specified diseases of blood and blood-forming organs; E87.6 Hypokalemia; Z66 Do not resuscitate; N32.0 Bladder-neck obstruction; I27.20 Pulmonary hypertension, unspecified; I48.91 Unspecified atrial fibrillation; N18.9 Chronic kidney disease, unspecified; I34.0 Nonrheumatic mitral (valve) insufficiency; I07.1 Rheumatic tricuspid insufficiency; D53.9 Nutritional anemia, unspecified; I95.1 Orthostatic hypotension; N13.9 Obstructive and reflux uropathy, unspecified; Z96.651 Presence of right artificial knee joint; I49.5 Sick sinus syndrome; I25.10 Atherosclerotic heart disease of native coronary artery without angina pectoris; E53.8 Deficiency of other specified B group vitamins; I45.4 Nonspecific intraventricular block; N32.89 Other specified disorders of bladder; Z86.711 Personal history of pulmonary embolism; Z84.1 Family history of disorders of kidney and ureter; Z87.891 Personal history of nicotine dependence; Z79.899 Other long term (current) drug therapy; Z82.3 Family history of stroke
CPT/HCPCS: 32555; 36415; 36573; 36600; 71045; 71260; 76770; 78452; 80048; 80053; 80069; 81001; 82436; 82533; 82570; 82607; 82803; 83605; 83735; 83880; 84100; 84133; 84300; 84443; 84484; 85025; 85049; 85379; 85384; 85520; 85610; 85730; 86022; 87040; 87077; 87081; 87086; 87186; 93005; 93017; 93306; 94660; G0378; J0696; J1644; J1940; J2785; J3480; J7060; P9047; Q0162; Q9967; A9502; C1751; J0282; J1160; J7040; J7050